=== PATIENT | female | born 1965 | race American Indian/Alaskan Native ===

== ENCOUNTER 2016-11-16 01:14 | Emergency (ER) | payer OTHER ==
[2016-11-16 01:36] VITALS: BP 145/86; PULSE 87; RESP 21; TEMP 97.6; O2SAT 97
--- NOTE | 2016-11-16 01:45 | C.PDOC ---
History Of Present Illness Patient presents to the ER after [facility] Patient is requesting an Rx for an inhaler and a shot for asthma. Patient is currently speaking in complete sentences. Denies any physical complaints at this time. Time Seen by Provider: 11/16/16 01:45 Chief Complaint (Nursing): Anxiety History Per: Patient History/Exam Limitations: no limitations Onset/Duration Of Symptoms: Hrs Current Symptoms Are (Timing): Still Present Suicide/Self Injury Attempted (Context): None Modifying Factor(s): None Severity: None Pain Scale Rating Of: 0 Associated Symptoms: denies: Depression, Suicidal Thoughts, Suicidal Plan Involuntary Hold By: None Recent travel outside of the [place]: No Past Medical History Reviewed: Historical Data, Nursing Documentation, Vital Signs Vital Signs: Last Vital Signs Temp 97.6 F 11/16/16 01:33 Pulse 87 11/16/16 01:33 Resp 21 11/16/16 01:33 BP 145/86 11/16/16 01:33 Pulse Ox 97 11/16/16 02:11 - Medical History PMH: Asthma, Emphysema, Schizophrenia Surgical History: No Surg Hx Family History: States: No Known Family Hx - Social History Hx Alcohol Use: Yes Hx Substance Use: No - Immunization History Hx Tetanus Toxoid Vaccination: Yes Hx Influenza Vaccination: Yes Hx Pneumococcal Vaccination: No Review Of Systems Constitutional: Negative for: Fever, Chills Gastrointestinal: Negative for: Nausea, Vomiting, Diarrhea Psych: Positive for: Anxiety Physical Exam - Physical Exam Appears: Non-toxic Skin: Warm, Dry Oral Mucosa: Moist Chest: Symmetrical, No Tenderness Cardiovascular: Rhythm Regular, No Murmur Respiratory: No Rales, No Rhonchi, Wheezing (Mild) Gastrointestinal/Abdominal: Soft, No Tenderness Neurological/Psych: Oriented x3 ED Course And Treatment O2 Sat by Pulse Oximetry: 97 (Room air) Pulse Ox Interpretation: Normal Progress Note: Decadron administered. Disposition Counseled Patient/Family Regarding: Studies Performed, Diagnosis, Need For Followup, Rx Given - Disposition Referrals: [facility] [Outside] Disposition: HOME/ ROUTINE Disposition Time: 01:45 Condition: FAIR Prescriptions: Albuterol HFA [Ventolin HFA 90 mcg/actuation (8 g)] 2 puff IH [id number] #1 puff Instructions: Asthma (DC) - Clinical Impression Clinical Impression: Asthma, Anxiety - Scribe Statement The provider has reviewed the documentation as recorded by the Scribe Dudley Franks All medical record entries made by the Scribe were at my direction and personally dictated by me. I have reviewed the chart and agree that the record accurately reflects my personal performance of the history, physical exam, medical decision making, and the department course for this patient. I have also personally directed, reviewed, and agree with the discharge instructions and disposition.
[2016-11-16] MEDS ORDERED: Dexamethasone 4 mg/1 ml IM STA (01:46)
[2016-11-16] MEDS ORDERED: Dexamethasone 4 mg/1 ml ONE (01:48)
== END 2016-11-16 02:10 | disposition home or self-care (01) ==
LOC: C.ER 01:14
DX: F41.9 Anxiety disorder, unspecified (principal); J45.909 Unspecified asthma, uncomplicated
CPT/HCPCS: 96372; 99283; J1100